=== PATIENT | female | born 1950 | race American Indian/Alaskan Native ===

== ENCOUNTER 2017-11-09 11:45 | Emergency (ER) | payer MEDICARE ==
[2017-11-09 11:55] VITALS: BP 147/75
[2017-11-09] MEDS ORDERED: TYLENOL PO ONE (14:12)
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
--- NOTE | 2017-11-09 16:44 | XRay Report ---
FINAL REPORT EXAM: XR HUMERUS 2+V LT HISTORY: left arm pain TECHNIQUE: AP and lateral views of the left humerus PRIORS: None. FINDINGS: Cortical irregularity in the supracondylar region of the distal humerus seen on 1 AP view (image 3). Dedicated elbow films are recommended to exclude fracture. There is no other evidence for acute fracture or dislocation. No radiopaque foreign bodies are seen. Bony mineralization is normal and joint spaces are maintained. IMPRESSION: Possible fracture involving supracondylar region the distal humerus. Dedicated left elbow films are recommended.
[2017-11-09] MEDS ORDERED: NORCO 5/325 PO ONE (17:14)
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
== END 2017-11-09 19:00 | disposition home or self-care (01) ==
LOC: ED 11:45
DX: S42.412A Displaced simple supracondylar fracture without intercondylar fracture of left humerus, initial encounter for closed fracture (principal); I10 Essential (primary) hypertension; E11.9 Type 2 diabetes mellitus without complications; J45.909 Unspecified asthma, uncomplicated; V49.59XA Passenger injured in collision with other motor vehicles in traffic accident, initial encounter; Y93.89 Activity, other specified; Y92.89 Other specified places as the place of occurrence of the external cause; Y99.8 Other external cause status
CPT/HCPCS: 70450